=== PATIENT | female | born 1985 | race Caucasian/White ===

== ENCOUNTER 2021-05-25 19:59 | Emergency (ER) | payer SELFPAY ==
[~2021-05-25] VITALS: Ht 172.7 cm; Wt 70.0 kg
[2021-05-25 20:05] VITALS: BP 132/75
== END 2021-05-25 22:44 | disposition left against medical advice (07) ==
LOC: ER 19:59
DX: Z53.21 Procedure and treatment not carried out due to patient leaving prior to being seen by health care provider (principal)